=== PATIENT | male | born 2000 | race Caucasian/White ===

== ENCOUNTER 2022-09-06 09:08 | Outpatient (REF) | payer OTHER, SELFPAY ==
[2022-09-06 09:24] LABS: MANUAL DIFF FLAG NO
[2022-09-06 09:30] LABS: Basophils Absolute Auto 0.1 X10*3/uL (0.0-0.2); Basophils Percent Auto 0.6 % (0-2); Eosinophils Absolute Auto 0.6 X10*3/uL (0.0-0.4); Eosinophils Percent Auto 6.4 % (0-4); Imm Gran Abs Auto 0.02 X10*3/uL (0.00-0.03); Imm Gran Pct Auto 0.2 % (0.0-0.4); Lymphocytes Absolute Auto 1.8 X10*3/uL (1.2-4.9); Lymphocytes Percent Auto 17.5 % (20-40); Mean Corpuscular HGB Conc 34.9 g/dl (31.0-36.0); Mean Corpuscular Hemoglobin 32.8 pg (27.0-33.0); Mean Corpuscular Volume 93.9 fL (80.0-98.0); Mean Platelet Volume 10.4 fL (9.4-12.4); Monocytes Absolute Auto 1.1 X10*3/uL (0.1-1.2); Monocytes Percent Auto 10.6 % (2-11); Neutrophils Absolute Auto 6.5 x10*3/uL (2.0-8.3); Neutrophils Percent Auto 64.7 % (45-73); Platelet Count 210 X10*3/uL (160-400); Red Blood Count 4.58 X10*6/uL (4.60-5.80); Red Cell Distribution Width 12.2 % (11.0-16.0); White Blood Count 10.1 X10*3/uL (4.8-10.8)
[2022-09-06 10:10] LABS: Alanine Aminotransferase 21 U/L (0-40); Albumin Level 4.7 g/dL (3.5-5.0); Alkaline Phosphatase 75 U/L (39-117); Anion Gap 14 (12-20); Aspartate Amino Transferase 21 U/L (5-37); Bilirubin Total 0.9 mg/dL (0.0-1.0); Blood Urea Nitrogen 8 mg/dL (9-16); Calcium 9.1 mg/dL (8.4-10.2); Carbon Dioxide 27 mmol/L (22-29); Chloride 107 mmol/L (96-108); Cholesterol 129 mg/dL; Estimated Glomerular Filt Rate > 60; Glucose Fasting 97 mg/dL (60-99); HDL Cholesterol 40 mg/dL; LDL Cholesterol Calculated 82 mg/dl; Potassium 4.6 mmol/L (3.3-5.1); Sodium 143 mmol/L (135-145); Total Protein 6.9 g/dL (6.5-8.0); Triglycerides 37 mg/dL
[2022-09-06 10:28] LABS: TSH reflex Free T4 1.09 uIU/mL (0.32-4.0)
[2022-09-08 11:43] LABS: HBS Num1 2.51 mIU/mL (0-7.99); HBc Num1 0.13 S/CO (0.00-0.79); HBsAGNum1 0.37 S/CO (0.00-0.99); HIV AB/AG Nonreactive (Nonreactive); HIV Num 1 0.06 S/CO (0.00-0.99); Hepatitis B Core Antibody Nonreactive (Nonreactive); Hepatitis B Surface Antigen Negative (Negative); ~HepC Num1 0.15 S/CO (0.00-0.79); ~Hepatitis B Surface Antibody NONREACTIVE (Nonreactive); ~Hepatitis C Antibody Nonreactive (Nonreactive)
[2022-09-08 11:54] LABS: Syphilis Screen Nonreactive (Nonreactive)
== END 2022-09-06 09:09 | disposition home or self-care (01) ==
LOC: HO.LAB 09:08
PROVIDERS: PCP Family Medicine; Visit Provider Family Medicine
DX: Z00.00 Encounter for general adult medical examination without abnormal findings (principal); Z11.3 Encounter for screening for infections with a predominantly sexual mode of transmission; Z11.4 Encounter for screening for human immunodeficiency virus [HIV]; R63.6 Underweight
CPT/HCPCS: 80053; 80061; 84443; 85025; 86704; 86706; 86780; 86803; 87340; 87389

== ENCOUNTER 2022-09-09 11:33 | Outpatient (REF) | payer OTHER, SELFPAY ==
[2022-09-09 15:10] LABS: Influenza A PCR NEGATIVE (Negative); Influenza B PCR NEGATIVE (Negative); Resp Syncy Virus RNA Qual PCR NEGATIVE (Negative); SARS COV2 PCR INHOUSE NEGATIVE (Negative)
== END 2022-09-09 11:34 | disposition home or self-care (01) ==
LOC: HO.LAB 11:33
PROVIDERS: Visit Provider Family Medicine
DX: Z20.822 Contact with and (suspected) exposure to COVID-19 (principal); J02.9 Acute pharyngitis, unspecified
CPT/HCPCS: 0241U

== ENCOUNTER 2022-09-23 15:45 | Outpatient (REF) | payer OTHER, SELFPAY ==
--- NOTE | ~2022-09-23 | XR_ITS ---
EXAMINATION: XR CHEST CLINICAL INFORMATION: R50.9 - Fever, unspecified. Intermittent shortness of breath. COMPARISON: None available. TECHNIQUE: 2 views of the chest were obtained. FINDINGS: The lungs are clear. There is no airspace consolidation or groundglass opacity or effusion. Heart size normal. Vascularity normal. The costophrenic sulci are clear. The hilar and mediastinal contours and visualized bony structures are unremarkable. XR/XR chest 2V IMPRESSION: Unremarkable examination.
[2022-09-23 16:03] LABS: MANUAL DIFF FLAG NO
[2022-09-23 17:17] LABS: Basophils Percent Auto 0.3 % (0-2); Eosinophils Absolute Auto 0.1 X10*3/uL (0.0-0.4); Hematocrit 40.1 % (42.0-52.0); Hemoglobin 13.9 g/dl (14.0-18.0); Imm Gran Abs Auto 0.04 X10*3/uL (0.00-0.03); Imm Gran Pct Auto 0.4 % (0.0-0.4); Lymphocytes Absolute Auto 2.2 X10*3/uL (1.2-4.9); Lymphocytes Percent Auto 22.6 % (20-40); Mean Corpuscular HGB Conc 34.7 g/dl (31.0-36.0); Mean Corpuscular Hemoglobin 32.2 pg (27.0-33.0); Mean Corpuscular Volume 92.8 fL (80.0-98.0); Mean Platelet Volume 11.4 fL (9.4-12.4); Monocytes Absolute Auto 0.8 X10*3/uL (0.1-1.2); Monocytes Percent Auto 8.7 % (2-11); Neutrophils Absolute Auto 6.4 x10*3/uL (2.0-8.3); Platelet Count 222 X10*3/uL (160-400); Red Blood Count 4.32 X10*6/uL (4.60-5.80); Red Cell Distribution Width 12.3 % (11.0-16.0); White Blood Count 9.5 X10*3/uL (4.8-10.8)
[2022-10-07 10:47] LABS: A1A Clinical Indication NG
== END 2022-09-23 15:46 | disposition home or self-care (01) ==
LOC: HO.LAB 15:45
PROVIDERS: PCP Family Medicine; Visit Provider Hospitalist
DX: Z00.00 Encounter for general adult medical examination without abnormal findings (principal); R06.02 Shortness of breath; R50.9 Fever, unspecified; Z87.09 Personal history of other diseases of the respiratory system; Z83.49 Family history of other endocrine, nutritional and metabolic diseases; Z20.2 Contact with and (suspected) exposure to infections with a predominantly sexual mode of transmission
CPT/HCPCS: 36415; 71046; 82104; 85025

== ENCOUNTER 2023-01-29 09:48 | Outpatient (AMB) | payer OTHER, SELFPAY ==
--- NOTE | 2023-01-29 09:49 | A.OFFPC_ITS ---
Vital Signs 01/29/23 09:51 Height 6 ft 2 in Weight 139 lb 6 oz BMI 17.9 BP 118/78 Blood Pressure Location Lt brachial Pulse 88 Pulse Source Pulse Oximeter Pulse Oximetry (%) 98 Oxygen Delivery Method Room Air Intake Visit Reasons: f/u anxiety Intake Note: Patient is here to follow up on med for anxiety. Allergies amoxicillin Allergy (Mild, Verified 01/29/23 09:52) Hives Penicillins Allergy (Verified 01/29/23 09:52) Unknown Seasonal Allergies Allergy (Verified 01/29/23 09:52) allergy Tobacco use date assessed: 01/29/23 Dental Screening Dental Screen Date: 01/29/23 Did you have a dental visit in the last 12 months?: Yes Did you have a dental problem in the last 6 months where you did not have access to dental care?: No Was dental information given to patient?: No HPI f/u anxiety HPI Details 22 y/o male presents to f/u anxiety and underweight status. Anxiety was controlled on mirtazapine every other day - he had been taking it daily but this was causing blunted emotions so he had altered his regimen. Had given him a script for Ensure for difficulty gaining weight. He reports he had tried Ensure but states he did not like it. He reports anxiety is well controlled on his medication regimen. HPI Comments History of Present Illness Details Documentation assistance for Jh Sam MD, was provided by Toni Taylor, Education Research Analyst on 01/29/2023 10:24 AM EST. I, Dr. Sam, have read, observed, and verified documentation. [facility] Social History Housing: House Patient Tobacco Use Status: Never used Tobacco e-Cigarette/Vaping Use: Never Used Second Hand Smoke Exposure: No service: No Current occupational status: employed Current occupational exposures/hazards: No Cognitive needs: No Hearing needs: No Vision needs: No Questionnaire PHQ-9 Over the last 2 weeks, how often have you been bothered by any of the following problems? 1. Little interest or pleasure in doing things: not at all 2. Feeling down, depressed, or hopeless: not at all 3. Trouble falling or staying asleep, or sleeping too much: not at all 4. Feeling tired or having little energy: not at all 5. Poor appetite or overeating: not at all 6. Feeling bad about yourself - or that you are a failure or have let yourself or your family down: not at all 7. Trouble concentrating on things, such as reading the newspaper or watching television: several days 8. Moving or speaking so slowly that other people could have noticed. Or the opposite - being so fidgety or restless that you have been moving around a lot more than usual: not at all 9. Thoughts that you would be better off or of hurting yourself in some way: not at all Total score: 1 Source: Developed by Drs. Bhupinder Osborne, Elisa Baptiste, Levon Mistry and colleagues, with an educational lillian from [employer]. Thrive Questionnaire Date Thrive assessed: 07/23/22 NICOLE-7 AMB Questionnaire NICOLE-7 Date NICOLE - 7 assessed: 07/23/22 Feeling nervous, anxious, or on edge: 0 = Not at all Not being able to stop or control worryin = Not at all Worrying too much about different things: 0 = Not at all Trouble relaxin = Not at all Being so restless that it is hard to sit still: 0 = Not at all Becoming easily annoyed or irritable: 0 = Not at all Feeling afraid as if something awful might happen: 0 = Not at all Total NICOLE-7 score (0-4 normal; 5-9 mild; 10-14 moderate; 15-21 severe): 0 Source: Developed by Drs. Bhupinder Osborne, Elisa Baptiste, Levon Mistry and colleagues, with an educational lillian from [employer]. Review of Systems Const Denies chills, Denies fatigue, Denies fever(s), Denies headache(s) and Denies weakness ENT Denies dizziness and Denies headache(s) Card Denies dyspnea Resp Denies cough, Denies dyspnea, Denies wheezing and Denies other (shortness of breath) Musc Denies numbness and Denies tingling Neuro Denies dizziness, Denies headache(s), Denies numbness, Denies tingling and Denies weakness Psych Denies anxiety and Denies depression Endo Denies fatigue Aller/Immun Denies wheezing Physical exam (Primary Care) Vital Signs: Last Vital Signs Pulse 88 08/10/23 09:51 BP 118/78 01/29/23 09:51 Pulse Ox 98 01/29/23 09:51 Oxygen Delivery Method Room Air 01/29/23 09:51 BMI result Body Mass Index 17.9 Tobacco/Smoking Status: Tobacco use Status Tobacco use date assessed 01/29/23 01/29/23 09:58 Patient Tobacco Use Status Never used Tobacco 01/29/23 09:58 e-Cigarette/Vaping Use Never Used 01/29/23 09:58 PHQ-9: PHQ-9 Score PHQ-9: Total score 1 01/29/23 10:22 Thrive Assessment: Date of Thrive Assessment Date Thrive assessed 07/23/22 01/29/23 09:58 Const General: well developed; No acute distress Nutritional Appearance: underweight Orientation/consciousness: patient oriented x3 HENMT Head: Yes normocephalic and Yes atraumatic Eyes General: appearance normal, both eyes and all related structures Pupils: Equal, round and reactive pupils present EOM: EOMs intact bilaterally Resp Effort & Inspection: normal respiratory effort Neuro General: patient oriented x3 and gait normal Cranial nerves: Yes Equal, round and reactive pupils present Psych Affect: normal affect Assessment and Plan Assessment & Plan (1) Anxiety: Code(s): F41.9 - Anxiety disorder, unspecified Plan: Fairly stable on mirtazapine every other day-when he took daily he noted flat affect He would like to see a therapist again so I will ask the nurse navigator to help facilitate this. (2) Underweight: Code(s): R63.6 - Underweight Plan: Underweight with early satiety Had referred him to GI in the past but they were unable to get hold of him but patient was not aware. He would still like to pursue at appointment. Made a new referral Had also given him a script for Ensure. He does not like the taste very much but says he will try again and he can spread this out throughout his day to get an additional 200 calories or so Can also try adding sauce is gravy butter except her a to his foods to increase calories as well. (3) Early satiety: Code(s): R68.81 - Early satiety Plan: As above Orders: Referrals Gastroenterology Referral R63.6 - Underweight, R68.81 - Early satiety Coding Level of Care Code Est Pt Level 3 (84998) Diagnoses Anxiety F41.9 Underweight R63.6 Early satiety R68.81
[2023-01-29 09:51] VITALS: BP 118/78; PULSE 88; O2SAT 98; BMI 17.9
== END 2023-01-29 10:35 | disposition home or self-care (01) ==
PROVIDERS: PCP Family Medicine; Visit Provider Family Medicine
DX: F41.9 Anxiety disorder, unspecified (principal); R63.6 Underweight; R68.81 Early satiety
CPT/HCPCS: 99213